=== PATIENT | female | born 1950 | race African-American/Black ===

== ENCOUNTER 2018-05-31 19:16 | Observation (INO) | payer OTHER, MEDICARE ==
[2018-05-31] MEDS ORDERED: FAMOTIDINE 20 MG TABLET PO ONE (19:34)
--- NOTE | 2018-05-31 19:39 | ER Document Report ---
ED General - General Stated Complaint: CHEST PAIN Time Seen by Provider: 05/31/18 19:27 Notes: Patient is a 68 year old female that comes to the emergency department for chief complaint of chest pain. She states that chest pain started this morning , went away, and then became worse at about 4 PM, she was seen by primary care and they sent her here. She reports nausea with the pain, pain is in the center of her chest and nonradiating, she was given 324 mg of aspirin and 4 mg of Zofran by EMS, she denies any current symptoms. She also states for the past 3 days her left arm and shoulder have been hurting but this is worse with movement and does not seem to be related. She denies injury. She denies shortness of breath, vomiting, fever, cough. She smokes, drinks occasionally, has a past medical history of hypertension, hyperlipidemia, GERD, depression. Brother had an NE. Unsure if she has had a stress test or heart catheterization in the past. No history of NE or PE. - Related Data Allergies/Adverse Reactions: Penicillins Allergy (Verified 05/31/18 20:35) Past Medical History - General Information source: Patient - Social History Smoking Status: Current Every Day Smoker Frequency of alcohol use: Social Drug Abuse: None Lives with: Family Family History: Reviewed & Not Pertinent - Past Medical History Cardiac Medical History: Reports: Hx Hypercholesterolemia, Hx Hypertension GI Medical History: Reports: Hx Gastroesophageal Reflux Disease - Immunizations Immunizations up to date: Yes Hx Diphtheria, Pertussis, Tetanus Vaccination: Yes Review of Systems - Review of Systems Constitutional: No symptoms reported EENT: No symptoms reported Cardiovascular: See HPI Respiratory: No symptoms reported Gastrointestinal: See HPI Genitourinary: No symptoms reported Female Genitourinary: No symptoms reported Musculoskeletal: See HPI Skin: No symptoms reported Hematologic/Lymphatic: No symptoms reported Neurological/Psychological: No symptoms reported Physical Exam - Vital signs Vitals: Resp BP Pulse Ox 18 133/86 H 100 05/31/18 19:27 05/31/18 19:27 05/31/18 19:27 - Notes Notes: GENERAL: Alert, interacts well. No acute distress. HEAD: Normocephalic, atraumatic. EYES: Pupils equal, round, and reactive to light. Extraocular movements intact. ENT: Oral mucosa moist, tongue midline. NECK: Full range of motion. Supple. Trachea midline. LUNGS: Clear to auscultation bilaterally, no wheezes, rales, or rhonchi. No respiratory distress. Tender to left lateral pectoralis muscle and extending slightly to the shoulder and axillary area. Pain is worse with movement/ROM testing. HEART: Regular rate and rhythm. No murmur ABDOMEN: Soft, non-tender. Non-distended. Bowel sounds present in all 4 quadrants. EXTREMITIES: Moves all 4 extremities spontaneously. No edema, normal radial and dorsalis pedis pulses bilaterally. No cyanosis. BACK: no cervical, thoracic, lumbar midline tenderness. No saddle anesthesia, normal distal neurovascular exam. NEUROLOGICAL: Alert and oriented x3. Normal speech. [cranial nerves II through XII grossly intact]. PSYCH: Normal affect, normal mood. SKIN: Warm, dry, normal turgor. No rashes or lesions noted. Course - Re-evaluation Re-evalutation: EKG shows sinus rhythm at a rate of 79, flattened T waves anteriorly, normal axis, no T-wave inversions or ST segment changes in consecutive leads. On my evaluation patient asymptomatic until she suddenly sat forward and belched. She states that she has been belching all day. Suspect a gastrointestinal component although she did just receive aspirin. Given Pepcid , workup pending. 05/31/18 20:26 CBC unremarkable. Chemistry shows mild hypokalemia at 3.4. Initial troponin is negative. Chest x-ray is unremarkable. Patient asymptomatic at this time. Her Heart Score is 4 (2 points for age and 2 points for risk factors). Could be gastrointestinal source (she has had belching), but her abdomen is non-tender and she points to the mid sternum as the previous location of pain which resolved on its own. Patient also specifically tells me that the pain she had at 4 pm did not feel like the belching, abdominal pains, and heartburn that she has had intermittently for months (on omeprazole), it was different and it made her concerned. No tachycardia, shortness of breath, lower extremity swelling, or current symptoms. Low suspicion of pulmonary embolism or aortic dissection. Will discuss with hospitalist for admission. Discussed with Dr. Hou, hospitalist, patient will be admitted to telemetry observation. - Vital Signs Vital signs: Temp Pulse Resp BP Pulse Ox 97.6 F 64 12 115/55 L 100 06/01/18 03:26 08/05/18 03:26 06/01/18 03:26 06/01/18 03:26 06/01/18 03:26 - Laboratory Result Diagrams: 05/31/18 19:25 05/31/18 19:25 Laboratory results interpreted by me: 05/31/18 05/31/18 19:25 19:25 Hct 35.7 L RDW 14.1 H Lymphocytes % 46.4 H Potassium 3.4 L Discharge - Discharge Clinical Impression: Chest pain Qualifiers: Chest pain type: unspecified Qualified Code(s): R07.9 - Chest pain, unspecified Condition: Stable Disposition: ADMITTED OBSERVATION Admitting Provider: Hospitalist Unit Admitted: Telemetry
[2018-05-31 19:52] LABS: ABSOLUTE EOSINOPHILS # (AUTO) 0.1 10^3/uL (0.0-0.6); ABSOLUTE LYMPHOCYTES (AUTO) 2.5 10^3/uL (0.5-4.7); ABSOLUTE MONOCYTES (AUTO) 0.4 10^3/uL (0.1-1.4); ABSOLUTE NEUT (AUTO) 2.4 10^3/uL (1.7-8.2); ALANINE AMINOTRANSFERASE 26 U/L (9-52); ALBUMIN 4.6 g/dL (3.5-5.0); ALKALINE PHOSPHATASE 110 U/L (38-126); ANION GAP 16 (5-19); ASPARTATE AMINO TRANSFERASE 27 U/L (14-36); BASOPHILS % (AUTO) 0.4 % (0-2); BILIRUBIN,DIRECT 0.2 mg/dL (0.0-0.4); BILIRUBIN,TOTAL 0.3 mg/dL (0.2-1.3); BLOOD UREA NITROGEN 10 mg/dL (7-20); CALCIUM 9.8 mg/dL (8.4-10.2); CARBON DIOXIDE 29 mmol/L (22-30); CHLORIDE 100 mmol/L (98-107); CREATINE KINASE 103 U/L (30-135); EOSINOPHILS % (AUTO) 1.4 % (0-6); GLUCOSE 91 mg/dL (75-110); HEMATOCRIT 35.7 % (36.0-47.0); HEMOGLOBIN 12.1 g/dL (12.0-15.5); LYMPHOCYTES % (AUTO) 46.4 % (13-45); MEAN CORPUSCULAR HEMOGLOBIN 29.7 pg (27.0-33.4); MEAN CORPUSCULAR HGB CONC 33.9 g/dL (32.0-36.0); MEAN CORPUSCULAR VOLUME 88 fl (80-97); MONOCYTES % (AUTO) 6.9 % (3-13); PLATELET COUNT 251 10^3/uL (150-450); POTASSIUM 3.4 mmol/L (3.6-5.0); RED BLOOD COUNT 4.07 10^6/uL (3.72-5.28); RED CELL DISTRIBUTION WIDTH 14.1 % (11.5-14.0); SEGMENTED NEUTROPHILS % (AUTO) 44.9 % (42-78); TOTAL CELLS COUNTED % (AUTO) 100 %; TOTAL PROTEIN 8.2 g/dL (6.3-8.2); WHITE BLOOD COUNT 5.4 10^3/uL (4.0-10.5)
[2018-05-31 20:02] LABS: CREATINE KINASE MB 0.62 ng/mL (<4.55)
[2018-05-31 20:03] LABS: TROPONIN I < 0.012 ng/mL
--- NOTE | 2018-05-31 20:12 | RADIOLOGY REPORT (SQ) ---
EXAM DESCRIPTION: CHEST SINGLE VIEW COMPLETED DATE/TIME: 05/31/2018 7:54 pm REASON FOR STUDY: chest pain COMPARISON: None. EXAM PARAMETERS: NUMBER OF VIEWS: One view. TECHNIQUE: Single frontal radiographic view of the chest acquired. RADIATION DOSE: NA LIMITATIONS: None. FINDINGS: LUNGS AND PLEURA: No opacities, masses or pneumothorax. No pleural effusion. MEDIASTINUM AND HILAR STRUCTURES: No masses. Contour normal. HEART AND VASCULAR STRUCTURES: Heart normal in size. Normal vasculature. BONES: No acute findings. HARDWARE: None in the chest. OTHER: No other significant finding. IMPRESSION: NO ACUTE RADIOGRAPHIC FINDING IN THE CHEST. TECHNICAL DOCUMENTATION: JOB ID: [id number] [employer]- All Rights Reserved Reading location - IP/workstation name: [email or web address]
[2018-05-31] MEDS ORDERED: POTASSIUM CHLORIDE 10 MEQ CAPSULE.ER PO ONE (20:55)
[2018-05-31] MEDS ORDERED: ACETAMINOPHEN 325 MG TABLET PO PRN (21:11)
[2018-05-31] MEDS ORDERED: CYCLOBENZAPRINE HCL 10 MG TABLET PO PRN (22:30)
--- NOTE | 2018-05-31 22:53 | PDOC H&P ---
History of Present Illness Admission Date/PCP: 05/31/18 21:08 BALTAZAR CHOUDHURY MD Patient complains of: chest and left arm discomfort History of Present Illness: GENNARO ZELAYA is a 68 year old woman with hx significant for hypertension and hyperlipidemia who reports that on Saturday of this week she started to feel left arm pain, and aching in the left arm that was intermittent, at rest mostly , would not go away, then she started to develop left upper back pain. This lasted for a few days. She was a little bit concerned but not too much and then this morning she ate breakfast and then developed very severe indigestion. It really did not go away. At 4 PM she ate dinner and then became very nauseated. Subsequent to that she notes that she was feeling some pinching sensations in her anterior left chest. Because of the combination of these symptoms, along with some mild shortness of breath and lightheadedness, she came into the ER. She is currently chest pain-free. First troponin is negative. EKG without ischemic changes. Patient is being admitted to the hospitalist for chest pain evaluation and cardiac stress testing. Past Medical History Cardiac Medical History: Reports: Hyperlipidema, Hypertension Pulmonary Medical History: Reports: Other - history recurrent PNA as a child EENT Medical History: Denies: Eyes, Ears Neurological Medical History: Reports: Other - occasional headaches Denies: Ischemic CVA Endocrine Medical History: Denies: Diabetes Mellitus Type 2, Hyperthyroidism, Hypothyroidism Renal/ Medical History: Denies: Chronic Kidney Disease GI Medical History: Reports: Gastroesophageal Reflux Disease Skin Medical History: Denies: Eczema, Psoriasis Psychiatric Medical History: Reports: Depression Psychiatric History Note: no suicidal history Traumatic Medical History: Reports: None Hematology: Denies: Anemia, Bleeding Tendencies Infectious Medical History: Reports: None Past Surgical History Past Surgical History: Reports: Hysterectomy, Orthopedic Surgery - Toe surgeries Social History Information Source: Patient 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 [employer] Lives with: Family Smoking Status: Never Smoker Frequency of Alcohol Use: Rare Last Alcohol Use: 05/24/18 Hx Recreational Drug Use: No Drugs: None Hx Prescription Drug Abuse: No Past Social History Note: She lives with her and cat, she has no children - Advance Directive Resuscitation Status: Do Not Resuscitate Surrogate healthcare decision maker:: Family History Parental Family History Reviewed: Yes - Father w with unknown heart problem , mother with DM complications Children Family History Reviewed: NA Sibling(s) Family History Reviewed.: Yes - Brother with some type of heart problem Medication/Allergy Home Medications: Acetaminophen [Pain & Fever] 650 mg PO Q6H PRN 05/31/18 Allergies/Adverse Reactions: Penicillins Allergy (Verified 05/31/18 20:35) Review of Systems Constitutional: PRESENT: headache(s). ABSENT: anorexia, fever(s) Eyes: ABSENT: visual disturbances Ears: ABSENT: hearing changes Nose, Mouth, and Throat: ABSENT: sore throat Cardiovascular: PRESENT: chest pain. ABSENT: dyspnea on exertion, edema, orthropnea, palpitations Respiratory: ABSENT: cough, dyspnea, hemoptysis Gastrointestinal: ABSENT: constipation, diarrhea, nausea, vomiting Genitourinary: ABSENT: dysuria Musculoskeletal: PRESENT: back pain. ABSENT: joint swelling Integumentary: ABSENT: lesions, pruritus Neurological: ABSENT: abnormal speech, confusion, focal weakness, syncope Psychiatric: PRESENT: depression. ABSENT: anxiety Endocrine: ABSENT: cold intolerance, heat intolerance Hematologic/Lymphatic: ABSENT: easy bleeding, easy bruising Allergic/Immunologic: PRESENT: seasonal rhinorrhea Physical Exam Vital Signs: Temp Pulse Resp BP Pulse Ox 98.0 F 18 133/86 H 97 05/31/18 19:50 05/31/18 19:27 05/31/18 19:27 05/31/18 19:35 General appearance: PRESENT: no acute distress, cooperative, well-developed, well-nourished Head exam: PRESENT: atraumatic, normocephalic Eye exam: PRESENT: EOMI. ABSENT: conjunctival injection, periorbital swelling, scleral icterus Ear exam: PRESENT: normal external ear exam Mouth exam: PRESENT: moist, neck supple, tongue midline Neck exam: ABSENT: tenderness Respiratory exam: PRESENT: clear to auscultation [place], unlabored. ABSENT: decreased breath sounds, prolonged expiratory phas, rales, rhonchi, wheezes Pulses: PRESENT: normal radial pulses, +1 pedal pulses bilateral GI/Abdominal exam: PRESENT: normal bowel sounds, soft. ABSENT: ascites, distended, guarding, tenderness Rectal exam: PRESENT: deferred Gentrourinary exam: ABSENT: indwelling catheter Extremities exam: ABSENT: calf tenderness, clubbing, joint swelling, pedal edema Musculoskeletal exam: PRESENT: tenderness - Left upper back. ABSENT: deformity Neurological exam: PRESENT: alert, awake, oriented to person, oriented to place , oriented to situation, CN II-XII grossly intact. ABSENT: aphasic Psychiatric exam: PRESENT: appropriate affect. ABSENT: anxious, depressed, suicidal ideation, unusual affect Skin exam: PRESENT: dry, intact, normal color, warm Results Impressions: Chest X-Ray 05/31/18 19:35 IMPRESSION: NO ACUTE RADIOGRAPHIC FINDING IN THE CHEST. Assessment & Plan - Diagnosis (1) Chest pain Qualifiers: Chest pain type: unspecified Qualified Code(s): R07.9 - Chest pain, unspecified Is this a current diagnosis for this admission?: Yes Plan: Patient has history of hypertension and hyperlipidemia. She has not had a stress test for many years. She has family history of brother and father with some type of heart disease that took both of their lives, unknown problem, unknown ages. Secondary to risk factors patient is being admitted to hospitalist service under observation status for chest pain monitoring and evaluation. She is being admitted on telemetry. She will be n.p.o. at midnight and stress test will be ordered for the morning that her troponins remain negative, first 1 negative in the ER. She is chest pain-free. Should her stress test be negative we will evaluate for other causes of chest pain, this could potentially be done as an outpatient if she remains stable. (2) Muscle spasm Is this a current diagnosis for this admission?: Yes Plan: Tenderness to palpation over the left upper back musculature. Patient has taken Flexeril safely in the past. I have ordered Flexeril 5 mg p.o. every 8 hours as needed spasm. (3) Hypokalemia Is this a current diagnosis for this admission?: Yes Plan: Mild at 3.4. 20 mEq of potassium given in the ER. Basic metabolic panel will be rechecked in the morning. (4) Depression Is this a current diagnosis for this admission?: Yes Plan: Patient takes trazodone for depression, this will be started. She has never been suicidal. She states her trazodone has helped her depression greatly. (5) Insomnia Is this a current diagnosis for this admission?: Yes Plan: Trazodone helps her with insomnia, this will be started. (6) Hypertension Is this a current diagnosis for this admission?: Yes Plan: Patient is normotensive on admission. I am awaiting medication reconciliation and her blood pressure medications will be started. She is not on a beta- олег per review of her medication list with her admitting nurse. (7) Hyperlipidemia Is this a current diagnosis for this admission?: Yes Plan: We will start her medications when medication reconciliation is completed. (8) GERD (gastroesophageal reflux disease) Is this a current diagnosis for this admission?: Yes Plan: We will start her GERD medication once medication reconciliation is completed. She received a dose of Pepcid in the ER. She states that it helped her nausea. - Time Time Spent: 50 to 70 Minutes Medications reviewed and adjusted accordingly: Yes - Inpatient Certification Based on my medical assessment, after consideration of the patient's comorbidities, presenting symptoms, or acuity I expect that the services needed warrant INPATIENT care.: No I certify that my determination is in accordance with my understanding of Medicare's requirements for reasonable and necessary INPATIENT services [42 CFR 412.3e].: No - Plan Summary Plan Summary: Admitted under observation status for chest pain evaluation
[2018-05-31] MEDS: HEPARIN SOD (PORCINE) 5,000 UNIT/ML 1 ML SYRINGE SUBCUT SCH (23:31)
[2018-06-01] MEDS ORDERED: TRAZODONE HCL 50 MG TABLET PO SCH
[2018-06-01 02:49] LABS: TROPONIN I < 0.012 ng/mL
[2018-06-01] MEDS: HEPARIN SOD (PORCINE) 5,000 UNIT/ML 1 ML SYRINGE SUBCUT SCH ×2 (05:55→13:12)
[2018-06-01] MEDS ORDERED: LANSOPRAZOLE 30 MG TAB.RAP.DR PO SCH (06:00)
[2018-06-01 08:25] LABS: ANION GAP 12 (5-19); BLOOD UREA NITROGEN 12 mg/dL (7-20); CARBON DIOXIDE 26 mmol/L (22-30); CHLORIDE 105 mmol/L (98-107); CHOLESTEROL 163.36 mg/dL (0-200); GLUCOSE 99 mg/dL (75-110); SODIUM 143.1 mmol/L (137-145); TRIGLYCERIDES 87 mg/dL (<150)
[2018-06-01 08:36] LABS: DIRECT LDL 85 mg/dL (<100)
[2018-06-01 08:37] LABS: CREATINE KINASE MB 0.54 ng/mL (<4.55)
[2018-06-01] MEDS ORDERED: NITROGLYCERIN 0.4 MG/TAB 25 TAB/BOTTLE SL PRN (08:38)
[2018-06-01 08:43] LABS: TROPONIN I < 0.012 ng/mL
--- NOTE | 2018-06-01 09:49 | EKG REPORT ---
SEVERITY:- BORDERLINE ECG - SINUS RHYTHM BORDERLINE T WAVE ABNORMALITIES : Confirmed by: Colette Grigsby 01-Jun-2018 09:49:01
--- NOTE | 2018-06-01 09:49 | EKG REPORT ---
SEVERITY:- ABNORMAL ECG - SINUS RHYTHM NONSPECIFIC T ABNORMALITIES, DIFFUSE LEADS : Confirmed by: Colette Grigsby 01-Jun-2018 09:49:21
[2018-06-01] MEDS ORDERED: FLUTICASONE NASAL SPRAY 50 MCG/SPRY 120 SPRAY/16 GM NASL SCH (10:00)
[2018-06-01] MEDS ORDERED: NITROGLYCERIN 0.4 MG/TAB 25 TAB/BOTTLE ONE (11:15)
[2018-06-01] MEDS ORDERED: REGADENOSON INJ 0.4 MG/5 ML DISP.SYRIN IV ONE (11:15)
[2018-06-01 14:19] LABS: CREATINE KINASE MB 0.63 ng/mL (<4.55)
[2018-06-01 14:25] LABS: TROPONIN I < 0.012 ng/mL
--- NOTE | 2018-06-01 14:32 | PDOC DISCHARGE SUMMARY ---
General - Admit/Disc Date/PCP Admission Date/Primary Care Provider: 05/31/18 21:08 BALTAZAR CHOUDHURY MD Discharge Date: 06/01/18 - Discharge Diagnosis (1) Chest pain Is this a current diagnosis for this admission?: Yes (2) GERD (gastroesophageal reflux disease) Is this a current diagnosis for this admission?: Yes - Additional Information Resuscitation Status: Do Not Resuscitate Prescriptions: Pantoprazole Sodium [Protonix] 40 mg PO DAILY #30 tablet. Home Medications: Acetaminophen [Tylenol 325 mg Tablet] 650 mg PO Q6HP PRN tablet 06/01/18 Cyclobenzaprine HCl [Flexeril 10 mg Tablet] 5 mg PO Q8HP PRN tablet 06/01/18 Fluticasone Propionate [Flonase Nasal [place] 50 Mcg/[place] 16 gm] 2 spray NASL DAILY spray.pump 06/01/18 Pantoprazole Sodium [Protonix] 40 mg PO DAILY #30 tablet. 06/01/18 Simvastatin [Zocor 40 mg Tablet] 40 mg PO QHS tablet 06/01/18 Trazodone HCl [Desyrel 50 mg Tablet] 50 mg PO QHS tablet 06/01/18 History of Present Illness History of Present Illness: GENNARO ZELAYA is a 68 year old woman with hx significant for hypertension and hyperlipidemia who reports that on Saturday of this week she started to feel left arm pain, and aching in the left arm that was intermittent, at rest mostly , would not go away, then she started to develop left upper back pain. This lasted for a few days. She was a little bit concerned but not too much and then this morning she ate breakfast and then developed very severe indigestion. It really did not go away. At 4 PM she ate dinner and then became very nauseated. Subsequent to that she notes that she was feeling some pinching sensations in her anterior left chest. Because of the combination of these symptoms, along with some mild shortness of breath and lightheadedness, she came into the ER. She is currently chest pain-free. First troponin is negative. EKG without ischemic changes. Patient is being admitted to the hospitalist for chest pain evaluation and cardiac stress testing. Hospital Course Hospital Course: Ms. Zelaya is a 68-year-old female with a past medical history of hypertension, GERD and hyperlipidemia who presented with chest pain. She describes it as a feeling of "indigestion or knot" Patient was admitted to rule out acute coronary syndrome. EKGs and cardiac enzymes were cycled and they were unremarkable. Patient did underwent chemical stress test which came back normal. Patient's chest pain is likely deemed to be noncardiac in origin. Patient does say that this has been going on for a while and her PCP has planned for her to go for an abdominal ultrasound however she is noncompliant with this yet. She says that she will have that appointment for abdominal ultrasound as outpatient done. Also advised patient to discuss possible need for EGD with her PCP on the follow-up appointment. Physical Exam Vital Signs: Temp Pulse Resp BP Pulse Ox 98.5 F 61 16 116/71 100 06/01/18 12:26 06/01/18 14:00 06/01/18 12:26 06/01/18 12:26 06/01/18 12:26 Intake & Output 05/31/18 06/01/18 06/02/18 06:59 06:59 06:59 Intake Total 444 Balance 444 Weight 165 lb 2.02 oz General appearance: PRESENT: no acute distress, well-developed, well-nourished Eye exam: PRESENT: conjunctiva pink, EOMI, PERRLA. ABSENT: scleral icterus Ear exam: PRESENT: normal external ear exam Neck exam: ABSENT: carotid bruit, JVD, lymphadenopathy, thyromegaly Respiratory exam: PRESENT: clear to auscultation [place]. ABSENT: rales, rhonchi, wheezes Cardiovascular exam: PRESENT: RRR. ABSENT: diastolic murmur, rubs, systolic murmur Pulses: PRESENT: normal dorsalis pedis pul GI/Abdominal exam: PRESENT: normal bowel sounds, soft. ABSENT: distended, guarding, mass, organolmegaly, rebound, tenderness Rectal exam: PRESENT: deferred Extremities exam: PRESENT: full ROM. ABSENT: calf tenderness, clubbing, pedal edema Neurological exam: PRESENT: alert, awake, oriented to person, oriented to place , oriented to time, oriented to situation, CN II-XII grossly intact. ABSENT: motor sensory deficit Psychiatric exam: PRESENT: appropriate affect, normal mood. ABSENT: homicidal ideation, suicidal ideation Skin exam: PRESENT: dry, intact, warm. ABSENT: cyanosis, rash Results Laboratory Results: 06/01/18 07:26 06/01/18 07:26 Sodium 143.1 Potassium 4.0 Chloride 105 Carbon Dioxide 26 Anion Gap 12 BUN 12 Creatinine 0.77 Est GFR ( Amer) > 60 Est GFR (Non-Af Amer) > 60 Glucose 99 Calcium 9.0 Triglycerides 87 Cholesterol 163.36 LDL Cholesterol Direct 85 VLDL Cholesterol 17.0 HDL Cholesterol 45 06/01/18 06/01/18 06/01/18 01:34 01:34 07:26 Creatine Kinase 72 60 CK-MB (CK-2) 0.60 Troponin I < 0.012 06/01/18 06/01/18 06/01/18 07:26 13:20 13:20 Creatine Kinase 65 CK-MB (CK-2) 0.54 0.63 Troponin I < 0.012 < 0.012 Impressions: Chest X-Ray 05/31/18 19:35 IMPRESSION: NO ACUTE RADIOGRAPHIC FINDING IN THE CHEST. Qualifiers - * PATIENT BEING DISCHARGED WITH ANY OF THE FOLLOWING DIAGNOSIS: No
[2018-06-01 14:35] VITALS: BP 108/70
[2018-06-01] MEDS ORDERED: SIMVASTATIN 40 MG TABLET PO SCH (22:00)
--- NOTE | 2018-06-01 23:41 | EKG REPORT ---
SEVERITY:- ABNORMAL ECG - SINUS RHYTHM LEFT ANTERIOR FASCICULAR BLOCK BORDERLINE T ABNORMALITIES, ANT-LAT LEADS : Confirmed by: Colette Grigsby 01-Jun-2018 23:40:36
--- NOTE | 2018-06-04 00:49 | DRAGON STRESS TEST REPORT ---
Intravenous Lexiscan Cardiolite stress test using single photon emmision computerized tomography. Date of procedure: 06/01/2018. Ordering Provider: Dr. Karey Hou. Patient's status: In Patient. Indication: Chest pain. Coronary risk factors: Age, hypertension, dyslipidemia , and family history of coronary artery disease. Resting EKG: Sinus Rhythm. Minor nonspecific T changes diffusely. Stress EKG: No changes of ischemia. The patient no chest pain or discomfort, and there were no arrhythmias seen. Reason for termination: Protocol. Conclusions: Normal EKG and hemodynamic response to IV Lexiscan. Nuclear data: At rest the patient was given 11.35 millicuries of technetium 99m sestamibi injected intravenously. As per protocol rest non gated SPECT images were obtained. Subsequently the patient was given intravenous Lexiscan at a dose of 0.4 mg in 5 mL intravenously, followed by flush with normal saline. Subsequently the stress dose of 33.1 millicuries of technetium 99m sestamibi was injected intravenously. As per protocol stress gated images were obtained. Nuclear interpretation: Review of images showed that all segments of the myocardium had normal perfusion at rest, and normal perfusion post stress with IV Lexiscan. All segments of the myocardium had normal motion, contraction, and thickening by gated study. T. I D. ratio was normal at 1.07. Computer read rest, and stress left ventricular ejection fraction were 69 %, and 64 %, respectively. Conclusion: 1. There is no scintigraphic evidence of Lexiscan induced myocardial ischemia. 2. There is no scintigraphic evidence of myocardial infarction/scar. Recommendations: Aggressive risk factor modification, and treating the underlying co- morbidities. MTDD
== END 2018-06-01 15:04 | disposition home or self-care (01) ==
LOC: ER 19:16 → EH 21:08 → 4N 22:38
PROVIDERS: ADMIT Internal Medicine; ATTEND Internal Medicine
DX: R07.9 Chest pain, unspecified (principal); K21.9 Gastro-esophageal reflux disease without esophagitis; E78.5 Hyperlipidemia, unspecified; M79.602 Pain in left arm; R06.02 Shortness of breath; R42 Dizziness and giddiness; R51 Headache; F32.9 Major depressive disorder, single episode, unspecified; M62.830 Muscle spasm of back; M54.6 Pain in thoracic spine; E87.6 Hypokalemia; G47.00 Insomnia, unspecified; I10 Essential (primary) hypertension; F17.200 Nicotine dependence, unspecified, uncomplicated; R14.2 Eructation; Z66 Do not resuscitate; Z79.899 Other long term (current) drug therapy; Z91.19 Patient's noncompliance with other medical treatment and regimen; Z90.710 Acquired absence of both cervix and uterus; Z82.49 Family history of ischemic heart disease and other diseases of the circulatory system
CPT/HCPCS: 93005 ×2; 99285; 36415 ×2; 82553 ×2; 82550 ×2; 83735; 85025; 80048; 80053; 84484 ×2; 83036; 80061; 93017; 71045; 78452; 93010 ×2; G0378 ×3; A9500; J2785; J1644 ×2; J3490 ×2; Q9969

== ENCOUNTER 2020-11-11 17:29 | Emergency (ER) | payer OTHER, MEDICARE ==
--- NOTE | 2020-11-11 18:38 | ER Document Report ---
ED Medical Screen (RME) - General Stated Complaint: FALL/ HEAD INJURY Time Seen by Provider: 11/11/20 18:29 Primary Care Provider: SEBASTIAN CHOUDHURY MD [Primary Care Provider] - Follow up as needed TRAVEL OUTSIDE OF THE [place] IN LAST 30 DAYS: No - HPI Notes: 11/11/20 18:35 70-year-old female presents to the emergency room today for evaluation status post while she was stepping over a curb around 1530 today. Patient states she fell and hit her head, does have a laceration to her left forehead as well as pain to her bilateral wrist. Patient reports she did lose consciousness for a few seconds. Reports she does have a headache, denies any nausea or vomiting. Denies any other area of injury. Has not tried any [id number] medications. Reports pain is 3 out of 5, throbbing and stabbing. Reports her last tetanus was 3 years ago I have greeted and performed a rapid initial assessment of this patient. A comprehensive ED assessment and evaluation of the patient, analysis of test re sults and completion of the medical decision making process will be conducted by additional ED providers. PHYSICAL EXAMINATION: GENERAL: Well-appearing, well-nourished and in no acute distress. HEAD: Atraumatic, normocephalic. 1 cm laceration over left eyebrow EYES: Pupils equal round extraocular movements intact, conjunctiva are normal. NECK: Normal range of motion CV: s1, s2 regular LUNGS: No respiratory distress Musculoskeletal: Normal range of motion. Bilateral wrist pain on palpation. Snuff box tenderness positive bilaterally NEUROLOGICAL: Normal speech, normal gait. SKIN: Warm, Dry, normal turgor, no rashes or lesions noted. The patient was evaluated during a global COVID-19 pandemic and that diagnosis was suspected/considered upon their initial presentation. Their evaluation, treatment and testing was consistent with current guidelines for patients who present with complaints or symptoms and may be related to COVID-19. - Related Data Allergies/Adverse Reactions: Penicillins Allergy (Verified 05/31/18 20:35) Past Medical History - Past Medical History Cardiac Medical History: Reports: Hx Hypercholesterolemia, Hx Hypertension Endocrine Medical History: Denies: Hx Diabetes Mellitus Type 2, Hx Hyperthyroidism, Hx Hypothyroidism Renal/ Medical History: Denies: Hx Peritoneal Dialysis GI Medical History: Reports: Hx Gastroesophageal Reflux Disease Skin Medical History: Denies Hx Eczema, Denies Hx Psoriasis Psychiatric Medical History: Reports: Hx Depression Past Surgical History: Reports: Hx Hysterectomy, Hx Orthopedic Surgery - Toe surgeries - Immunizations Immunizations up to date: Yes Hx Diphtheria, Pertussis, Tetanus Vaccination: Yes Physical Exam - Vital signs Vitals: Temp Pulse Resp BP Pulse Ox 97.9 F 80 16 141/77 H 99 11/11/20 17:46 11/11/20 17:46 11/11/20 17:46 11/11/20 17:46 11/11/20 17:46 Course - Vital Signs Vital signs: Temp Pulse Resp BP Pulse Ox 97.9 F 80 16 141/77 H 99 11/11/20 17:46 11/11/20 17:46 11/11/20 17:46 11/11/20 17:46 11/11/20 17:46 Doctor's Discharge - Discharge Referrals: SEBASTIAN CHOUDHURY MD [Primary Care Provider] - Follow up as needed
--- NOTE | 2020-11-11 19:35 | RADIOLOGY REPORT (SQ) ---
EXAM DESCRIPTION: CT HEAD WITHOUT IMAGES COMPLETED DATE/TIME: 11/11/2020 4:14 pm REASON FOR STUDY: FOOSH, hit head, +loc, -blood thinners, +CASTRO COMPARISON: None. TECHNIQUE: Axial images acquired through the brain without intravenous contrast. Images reviewed wi th bone, brain and subdural windows. Additional sagittal and coronal reconstructions were generated. Images stored on PACS. All CT scanners at this facility use dose modulation, iterative reconstruction, and/or weight based d osing when appropriate to reduce radiation dose to as low as reasonably achievable (ALARA). [facility]: Dose Right [facility]: CareDose [facility]: Dose Right [facility]: Teradose 4D [facility]: Infogram RADIATION DOSE: CT Rad equipment meets quality standard of care and radiation dose reduction techniq ues were employed. CTDIvol: 53.2 mGy. DLP: 964 mGy-cm. mGy. LIMITATIONS: None. FINDINGS: VENTRICLES: Normal size and contour. CEREBRUM: No masses. No hemorrhage. No midline shift. No evidence for acute infarction. Normal gra y/white matter differentiation. No areas of low density in the white matter. CEREBELLUM: No masses. No hemorrhage. No alteration of density. No evidence for acute infarction. EXTRAAXIAL SPACES: No fluid collections. No masses. ORBITS AND GLOBE: No intra- or extraconal masses. Normal contour of globe without masses. CALVARIUM: No fracture. PARANASAL SINUSES: No fluid or mucosal thickening. SOFT TISSUES: No mass or hematoma. OTHER: No other significant finding. IMPRESSION: No acute intracranial abnormality on noncontrast CT. EVIDENCE OF ACUTE STROKE: NO. COMMENT: Quality ID # [id number]: Final reports with documentation of one or more dose reduction techniques (e.g., Automated exposure control, adjustment of the mA and/or kV according to patient size, use of iterative reconstruction technique) TECHNICAL DOCUMENTATION: JOB ID: [id number] 2010 [employer]- All Rights Reserved Reading location - IP/workstation name: [email or web address]
--- NOTE | 2020-11-11 19:56 | RADIOLOGY REPORT (SQ) ---
EXAM DESCRIPTION: CT CERVICAL SPINE WITHOUT IMAGES COMPLETED DATE/TIME: 11/11/2020 7:14 pm REASON FOR STUDY: FOOSH, hit head, +loc, -blood thinners, +CASTRO COMPARISON: None. TECHNIQUE: Axial images acquired through the cervical spine without intravenous contrast. Images re viewed with lung, soft tissue and bone windows. Reconstructed coronal and sagittal MPR images review ed. Images stored on PACS. All CT scanners at this facility use dose modulation, iterative reconstruction, and/or weight based d osing when appropriate to reduce radiation dose to as low as reasonably achievable (ALARA). [facility]: Dose Right [facility]: CareDose [facility]: Dose Right [facility]: Teradose 4D [facility]: Smart RoosterBi RADIATION DOSE: CT Rad equipment meets quality standard of care and radiation dose reduction techniq ues were employed. CTDIvol: 18.9 mGy. DLP: 370 mGy-cm. mGy. LIMITATIONS: None. FINDINGS: ALIGNMENT: Anatomic. MINERALIZATION: Normal. VERTEBRAL BODIES: No fractures or dislocation. DISCS: No significant disc disease. FACETS, LATERAL MASSES, POSTERIOR ELEMENTS: No fractures. No dislocation. No acute findings. HARDWARE: None in the spine. VISUALIZED RIBS: No fractures. LUNG APICES AND SOFT TISSUES: No significant or acute findings. OTHER: No other significant finding. IMPRESSION: NO ACUTE OR SIGNIFICANT FINDINGS IN THE CERVICAL SPINE. TECHNICAL DOCUMENTATION: JOB ID: [id number] Quality ID # [id number]: Final reports with documentation of one or more dose reduction techniques (e.g., Au tomated exposure control, adjustment of the mA and/or kV according to patient size, use of iterative reconstruction technique) 2010 [employer]- All Rights Reserved Reading location - IP/workstation name: [email or web address]
--- NOTE | 2020-11-11 20:21 | RADIOLOGY REPORT (SQ) ---
CLINICAL INDICATION: FOOSH, bilateral wrist pain. . TECHNIQUE: 3 view(s) were obtained of the right wrist. 3 view(s) were obtained of the left wrist. COMPARISON: None. FINDINGS: Right: No acute displaced fracture is identified of the wrist. Alignment appears anatomic. Joint spaces are within normal limits for age. Surrounding soft tissues are unremarkable. Left: No acute displaced fracture is identified of the wrist. Alignment appears anatomic. Joint spaces are within normal limits for age. Surrounding soft tissues are unremarkable. IMPRESSION: No evidence of acute displaced fracture of either wrist.
[2020-11-11 22:46] VITALS: BP 136/77
[2020-11-11] MEDS ORDERED: HYDROCODONE/ACETAMINOPHEN 5-325 MG TABLET PO ONE (23:02)
[2020-11-11] MEDS ORDERED: ONDANSETRON 4 MG TAB.RAPDIS PO ONE (23:02)
[2020-11-11] MEDS ORDERED: HYDROCODONE/ACETAMINOPHEN 5-325 MG (6 TAB/ER DISP) PO PRN (23:02)
--- NOTE | 2020-11-11 23:09 | ER Document Report ---
ED General - General Chief Complaint: Fall Stated Complaint: FALL/ HEAD INJURY Time Seen by Provider: 11/11/20 18:29 Primary Care Provider: SEBASTIAN CHOUDHURY MD [NO LOCAL MD] - Follow up as needed TRAVEL OUTSIDE OF THE [place] IN LAST 30 DAYS: No - HPI Notes: Patient is a 70-year-old female who presents to the emergency department for evaluation. She tripped. She fell, striking her head. She did lose consciousness. She had some neck pain. She states her tetanus is up-to-date. She also caught herself on her wrists. She has been ambulatory since this happened. She puts her pain at a 4 out of 5, on the her face, head, and bilateral wrist, left greater than right. - Related Data Allergies/Adverse Reactions: Penicillins Allergy (Verified 05/31/18 20:35) Home Medications: lisinopril, pantoprazole, statin Past Medical History - General Information source: Patient - Social History Smoking Status: Never Smoker Frequency of alcohol use: None Drug Abuse: None Family History: Reviewed & Not Pertinent Patient has homicidal ideation: No - Medical History Medical History: Other - Sarcoidosis - Past Medical History Cardiac Medical History: Reports: Hx Hypercholesterolemia, Hx Hypertension Endocrine Medical History: Denies: Hx Diabetes Mellitus Type 2, Hx Hyperthyroidism, Hx Hypothyroidism Renal/ Medical History: Denies: Hx Peritoneal Dialysis GI Medical History: Reports: Hx Gastroesophageal Reflux Disease, Hx Ulcer Skin Medical History: Denies Hx Eczema, Denies Hx Psoriasis Psychiatric Medical History: Reports: Hx Depression Past Surgical History: Reports: Hx Hysterectomy, Hx Orthopedic Surgery - Toe surgeries - Immunizations Immunizations up to date: Yes Hx Diphtheria, Pertussis, Tetanus Vaccination: Yes Hx Pneumococcal Vaccination: 10/28/09 Review of Systems - Review of Systems Constitutional: No symptoms reported EENT: No symptoms reported Cardiovascular: No symptoms reported Respiratory: No symptoms reported Gastrointestinal: No symptoms reported Genitourinary: No symptoms reported Musculoskeletal: See HPI Skin: See HPI Neurological/Psychological: No symptoms reported Physical Exam - Vital signs Vitals: Temp Pulse Resp BP Pulse Ox 97.9 F 80 16 141/77 H 99 11/11/20 17:46 11/11/20 17:46 11/11/20 17:46 11/11/20 17:46 11/11/20 17:46 - Notes Notes: Vital signs reviewed, please refer to chart. Head is normocephalic. Pupils equal round, reactive to light. L-shaped 2 cm laceration, superficial, overlying the lateral eyebrow. Nares are patent without septal hematoma. No facial bone tenderness, no orbital stepoff. Oral mucosa is moist. Uvula is midline. Examination of the spine yields no midline tenderness or step-off. No paraspinal musculature tenderness is appreciated. Heart is regular rate and rhythm. Lungs are clear to auscultation bilaterally. Chest wall excursion is equal, chest is nontender. Abdomen is soft, nontender, normoactive bowel sounds throughout. Extremities without cyanosis, clubbing. Posterior calves are nonten clyde. Peripheral pulses are equal. Skin is warm and dry. Patient is awake, alert, oriented x3. Cranial nerves II - XII are grossly intact without focal neurological deficits. Strength is plus 5 out of 5 bilateral upper and lower extremities. Sensation is intact. Reflexes symmetrical. Intact [id number], rapid alternating movements, [id number]. Examination of bilateral upper extremities yields no obvious deformity. She has full range of motion of bilateral wrists. She has some distal radius tenderness to palpation on the left, none on the right. No anatomical snuffbox tenderness. Full range of motion of the thumb and fingers. Sensation is intact. Course - Re-evaluation Re-evalutation: 11/11/20 23:06 Patient presents emergency department for evaluation. She fell, striking her head. She has CT scans of the head and neck, plain x-rays performed and showed no abnormality. Her tetanus is already up-to-date. I will been treat her pain with Converse and Zoan here. I will send her home with Converse. In regards to her laceration, she does have a very small amount of gaping with pressure over the vertically oriented aspect of her left eye laceration. Treatment options were discussed and it was decided that skin glue was appropriate. This will be performed. Otherwise I did talk to the patient as well as her about the fact that small, subtle fractures are not always identified on initial x-ray and if her symptoms persist that she would require further imaging. They both voiced understanding. - Vital Signs Vital signs: Temp Pulse Resp BP Pulse Ox 98 F 79 16 136/77 H 99 11/11/20 22:46 11/11/20 22:45 11/11/20 22:45 11/11/20 22:45 11/11/20 22:45 - Laboratory Results Critical Laboratory Results Reviewed: No Critical Results - Radiology Results Radiology Results Interpreted: 11/11/20 23:[address] 11/11/20 18:34 IMPRESSION: NO ACUTE OR SIGNIFICANT FINDINGS IN THE CERVICAL SPINE. Hand/Wrist X-Ray 11/11/20 18:34 IMPRESSION: No evidence of acute displaced fracture of either wrist. Head CT 11/11/20 18:34 IMPRESSION: No acute intracranial abnormality on noncontrast CT. EVIDENCE OF ACUTE STROKE: NO. Critical Radiology Results Reviewed: No Critical Results Procedures - Laceration/Wound Repair Left Face Wound length (cm): 2 Wound's Depth, Shape: Superficial, Linear Laceration pre-procedure: Chloraprep applied Wound explored: Clean, No foreign body removed Wound Repaired With: Dermabond Discharge - Discharge Clinical Impression: Head injury, acute, with loss of consciousness Qualifiers: Encounter type: initial encounter Qualified Code(s): S06.9X9A - Unspecified intracranial injury with loss of consciousness of unspecified duration, initial encounter Facial laceration Qualifiers: Encounter type: initial encounter Qualified Code(s): S01.81XA - Laceration without foreign body of other part of head, initial encounter Strain of wrist, bilateral Qualifiers: Encounter type: initial encounter Qualified Code(s): S66.911A - Strain of unspecified muscle, fascia and tendon at wrist and hand level, right hand, initial encounter; S66.912A - Strain of unspecified muscle, fascia and tendon at wrist and hand level, left hand, initial encounter Condition: Stable Disposition: HOME, SELF-CARE Instructions: Antibiotic Ointment Protection ([facility]), Laceration Care ([facility]), Soap Cleansing ([facility]), Sprain ([facility]) Additional Instructions: Keep wound clean with soap and water. Converse as needed for severe pain. Please watch for dizziness, drowsiness, constipation with this medication. Please take it with food. Follow-up with primary care. If your pain persists in your wrists, or other acute pain worsens, you may need further imaging. Return to [facility] emergency department with worsening or new concerning symptoms of any sort. Referrals: SEBASTIAN CHOUDHURY MD [NO LOCAL MD] - Follow up as needed
== END 2020-11-11 23:45 | disposition home or self-care (01) ==
LOC: ER 17:29
DX: S06.9X9A Unspecified intracranial injury with loss of consciousness of unspecified duration, initial encounter (principal); S01.81XA Laceration without foreign body of other part of head, initial encounter; S66.911A Strain of unspecified muscle, fascia and tendon at wrist and hand level, right hand, initial encounter; W10.1XXA Fall (on)(from) sidewalk curb, initial encounter; E78.00 Pure hypercholesterolemia, unspecified; I10 Essential (primary) hypertension
CPT/HCPCS: 99284; 73110; 70450; 72125; 12011; S0119